=== PATIENT | male | born 1940 | race Caucasian/White ===

== ENCOUNTER 2023-10-28 14:50 | Emergency (ER) | payer MEDICARE ==
--- NOTE | 2023-10-28 15:31 | ED ---
General Adult HPI - General Chief complaint: Syncope Stated complaint: syncope Time Seen by Provider: 10/28/23 15:00 Source: patient, EMS, RN notes reviewed, old records reviewed Mode of arrival: EMS Limitations: no limitations - History of Present Illness Initial comments: Is an 83-year-old male who presents to the emergency department complaining of a syncopal episode. Patient states he was in the park and had a couple of hot dogs he sat down on a bench and then started feeling lightheaded. According to his son he went unresponsive just a few seconds he woke back up and continued to feel lightheaded and went back out. Son and a friend laid him down on the ground he then woke up almost immediately and he was without complaints. Patient still is without complaints. Patient denies any symptoms prior to the event. Patient denies chest pain palpitations difficulty breathing or shortness of breath. Patient has any recent fever chills or cough or patient denies any nausea vomiting or diarrhea. Patient states he is probably not drinking enough and this kind of weather. - Related Data Home Medications Medication Instructions Recorded Confirmed Aspirin EC [Ecotrin Low Dose] 81 mg PO DAILY 10/28/23 10/28/23 Cholecalciferol [Vitamin D3 (125 125 mcg PO DAILY 10/28/23 10/28/23 Mcg = 5000 Iu)] Flecainide [Tambocor] 50 mg PO BID 10/28/23 10/28/23 LORazepam [Ativan] 0.5 mg PO BID PRN 10/28/23 10/28/23 Latanoprost [Latanoprost 0.005%] 1 drop BOTH EYES HS 10/28/23 10/28/23 Lisinopril-Hctz 20-25 mg 1 tab PO DAILY 10/28/23 10/28/23 [Zestoretic 20-25] Metoprolol Succinate (ER) [Toprol 25 mg PO HS 10/28/23 10/28/23 Xl] Multivitamins, Thera [Multivitamin 1 tab PO DAILY 10/28/23 10/28/23 (formulary)] Thiamine [Vitamin B-1] 100 mg PO DAILY 10/28/23 10/28/23 Timolol 0.5% Ophth Soln [Timoptic 1 drop BOTH EYES DAILY 10/28/23 10/28/23 0.5% Ophth Soln] ondansetron HCL [Zofran] 8 mg PO Q12HR PRN 10/28/23 10/28/23 Allergies Allergy/AdvReac Type Severity Reaction Status Date / Time No Known Allergies Allergy Verified 10/28/23 16:11 Review of Systems ROS Statement: Those systems with pertinent positive or pertinent negative responses have been documented in the HPI. ROS Other: All systems not noted in ROS Statement are negative. Past Medical History Past Medical History: Atrial Fibrillation, Hypertension History of Any Multi-Drug Resistant Organisms: None Reported Past Surgical History: Back Surgery Additional Past Surgical History / Comment(s): TURP Smoking Status: Never smoker Past Alcohol Use History: None Reported Past Drug Use History: None Reported General Exam - General Exam Comments Initial Comments: GENERAL: Patient is well-developed and well-nourished. Patient is nontoxic and well- hydrated and is in no acute distress. ENT: Neck is soft and supple. No significant lymphadenopathy is noted. Oropharynx is clear. Moist mucous membranes. Neck has full range of motion without eliciting any pain. EYES: The sclera were anicteric and conjunctiva were pink and moist. Extraocular movements were intact and pupils were equal round and reactive to light. Eyelids were unremarkable. PULMONARY: Unlabored respirations. Good breath sounds bilaterally. No audible rales rhonchi or wheezing was noted. CARDIOVASCULAR: There is a regular rate and rhythm without any murmurs gallops or rubs. ABDOMEN: Soft and nontender with normal bowel sounds. SKIN: Skin is clear with no lesions or rashes and otherwise unremarkable. NEUROLOGIC: Patient is alert and oriented x3. Cranial nerves II through XII are grossly intact. Motor and sensory are also intact. Normal speech, volume and content. Symmetrical smile. MUSCULOSKELETAL: Normal extremities with adequate strength and full range of motion. LYMPHATICS: No significant lymphadenopathy is noted PSYCHIATRIC: Normal psychiatric evaluation. Limitations: no limitations Course Vital Signs 10/28/23 10/28/23 10/28/23 14:52 15:15 16:50 Temperature 97.8 F Pulse Rate 72 70 Pulse Rate [ 73 Sitting Pulse Oximetery] Pulse Rate [ 74 Standing Pulse Oximetery] Pulse Rate [ 71 Supine Pulse Oximetery] Respiratory 18 18 Rate Blood Pressure 143/89 128/81 Blood Pressure 134/80 [Left Arm Sitting] Blood Pressure 138/86 [Left Arm Standing] Blood Pressure 139/80 [Left Arm Supine] O2 Sat by Pulse 98 100 Oximetry 10/28/23 17:50 Temperature Pulse Rate 64 Pulse Rate [ Sitting Pulse Oximetery] Pulse Rate [ Standing Pulse Oximetery] Pulse Rate [ Supine Pulse Oximetery] Respiratory 18 Rate Blood Pressure 131/79 Blood Pressure [Left Arm Sitting] Blood Pressure [Left Arm Standing] Blood Pressure [Left Arm Supine] O2 Sat by Pulse 99 Oximetry Medical Decision Making - Medical Decision Making EKG is interpreted by myself. EKG shows a sinus rhythm at 69 bpm [place] interval is 221 QRS is 149 QT interval is 449 QTc is 463. Patient's EKG shows a right bundle branch block Was pt. sent in by a medical professional or institution (, [facility], [employer], urgent care, hospital, or assisted...) When possible be specific @ -No Did you speak to anyone other than the patient for history (EMS, parent, family, police, friend...)? What history was obtained from this source @ -No Did you review nursing and triage notes (agree or disagree)? Why? @ -I reviewed and agree with nursing and triage notes Were old charts reviewed (outside hosp., previous admission, EMS record, old EKG, old radiological studies, urgent care reports/EKG's, assisted records)? Report findings @ -No old charts were reviewed Differential Diagnosis? @ -M differential syncope EKG interpreted by me (3pts min.). @ -As above X-rays interpreted by me (1pt min.). @ -X-ray shows no acute abnormality CT interpreted by me (1pt min.). @ -None done U/S interpreted by me (1pt. min.). @ -None done What testing was considered but not performed or refused? (CT, X-rays, U/S, labs)? Why? @ -None What meds were considered but not given or refused? Why? @ -None Did you discuss the management of the patient with other professionals (professionals i.e. YAMIL Reeves, [employer], lab, RT, psych nurse, social psychologist, operations intelligence superintendent, teacher, airfield services officer, case filler)? Give summary @ -No Was smoking cessation discussed for >3mins.? @ -No Was critical care preformed (if so, how long)? @ -No Were there social determinants of health that impacted care today? How? (Homelessness, low income, unemployed, alcoholism, drug addiction, transportation, low edu. Level, literacy, decrease access to med. care, long term, rehab)? @ -No Was there de-escalation of care discussed even if they declined (Discuss DNR or withdrawal of care, Hospice)? DNR status @ -No What co-morbidities impacted this encounter? (DM, HTN, Smoking, COPD, CAD, Cancer, CVA, ARF, Chemo, Hep., AIDS, mental health diagnosis, sleep apnea, m orbid obesity)? @ -None Was patient admitted / discharged? Hospital course, mention meds given and r oute, prescriptions, significant lab abnormalities, going to OR and other pertinent info. @ -Patient was asymptomatic throughout his ED course per patient was able to eat and ambulate in the emergency department department. Patient was not orthostatic. Patient did look slightly dehydrated on some of his lab work so patient was given fluids in the emergency department Undiagnosed new problem with uncertain prognosis? @ -No Drug Therapy requiring intensive monitoring for toxicity (Heparin, Nitro, Insulin, Cardizem)? @ -No Were any procedures done? @ -No Diagnosis/symptom? @ -Default Acute, or Chronic, or Acute on Chronic? @ -P acute Uncomplicated (without systemic symptoms) or Complicated (systemic symptoms)? @ -Complicated Side effects of treatment? @ -No Exacerbation, Progression, or Severe Exacerbation? @ -No Poses a threat to life or bodily function? How? (Chest pain, [place], [place], pneumonia, PE, COPD, DKA, ARF, appy, cholecystitis, CVA, Diverticulitis, Homicidal, Suicidal, threat to staff... and all critical care pts) @ -No Diagnosis/symptom? @ -Patient Acute, or Chronic, or Acute on Chronic? @ -Acute Uncomplicated (without systemic symptoms) or Complicated (systemic symptoms)? @ -Complicated Side effects of treatment? @ -None Exacerbation, Progression, or Severe Exacerbation] @ -No Poses a threat to life or bodily function? @ -No - Lab Data Result diagrams: 10/28/23 18:11 Lab Results 10/28/23 10/28/23 Range/Units 18:11 18:11 WBC 6.6 (3.8-10.6) k/uL RBC 4.51 (4.30-5.90) m/uL Hgb 14.9 (13.0-17.5) gm/dL Hct 45.0 (39.0-53.0) % MCV 99.7 (80.0-100.0) fL MCH 32.9 (25.0-35.0) pg MCHC 33.0 (31.0-37.0) g/dL RDW 12.5 (11.5-15.5) % Plt Count 345 (150-450) k/uL MPV 7.8 Neutrophils % 72 % Lymphocytes % 20 % Monocytes % 6 % Eosinophils % 1 % Basophils % 0 % Neutrophils # 4.8 (1.3-7.7) k/uL Lymphocytes # 1.3 (1.0-4.8) k/uL Monocytes # 0.4 (0-1.0) k/uL Eosinophils # 0.1 (0-0.7) k/uL Basophils # 0.0 (0-0.2) k/uL Troponin I <0.012 (0.000-0.034) ng/mL Disposition Clinical Impression: Syncope, Dehydration Disposition: HOME SELF-CARE Condition: Good Instructions (If sedation given, give patient instructions): Dehydration (ED), Syncope (ED) Is patient prescribed a controlled substance at d/c from ED?: No Referrals: Nonstaff,Physician [Primary Care Provider] - 1-2 days Time of Disposition: 18:57
--- NOTE | 2023-10-28 16:32 | XR ---
EXAMINATION TYPE: XR chest 2V DATE OF EXAM: 10/28/2023 4:27 PM CLINICAL INDICATION:Male, 83 years old with history of Chest Pain; COMPARISON: None TECHNIQUE: XR chest 2V Frontal and lateral views of the chest. FINDINGS: Lungs/Pleura: 16 mm left upper lung nodule density. There is flattening of the diaphragm with increas ed lucency of the lungs. No evidence of pneumothorax, pleural effusion or focal consolidation. Pulmonary vascularity: Unremarkable. Heart/mediastinum: Cardiomediastinal silhouette is unremarkable. Musculoskeletal: No acute osseous pathology. IMPRESSION: 1. No acute cardiopulmonary disease process. 2. COPD changes. 3. Left left upper lung 16 mm nodule. Consider complete evaluation with outpatient CT chest.
[2023-10-28] MEDS: SODIUM CHLORIDE 0.9% 1,000 ML IV ONE (16:41)
[2023-10-28] MEDS: predniSONE 20 MG TAB PO STA (16:48)
[2023-10-28] MEDS: ASPIRIN 325 MG TAB PO STA (16:52)
[2023-10-28 18:15] LABS: Basophils % (A) 0 %; Eosinophils # (A) 0.1 k/uL (0-0.7); Eosinophils % (A) 1 %; HGB 14.9 gm/dL (13.0-17.5); Lymphocytes # (A) 1.3 k/uL (1.0-4.8); Lymphocytes % (A) 20 %; MCH 32.9 pg (25.0-35.0); MCV 99.7 fL (80.0-100.0); Mean Platelet Volume 7.8; Monocytes # (A) 0.4 k/uL (0-1.0); Monocytes % (A) 6 %; Neutrophils # (A) 4.8 k/uL (1.3-7.7); Neutrophils % (A) 72 %; Platelet Count 345 k/uL (150-450); RBC 4.51 m/uL (4.30-5.90); RDW 12.5 % (11.5-15.5); WBC 6.6 k/uL (3.8-10.6)
[2023-10-28 18:24] LABS: ALT 23 U/L (4-49); African American GFR (CKD) 82 (>60 ml/min/1.73 sqM); Albumin 3.9 g/dL (3.5-5.0); Anion Gap 4 mmol/L; Blood Urea Nitrogen 20 mg/dL (9-20); Calcium 9.2 mg/dL (8.4-10.2); Carbon Dioxide 30 mmol/L (22-30); Chloride 102 mmol/L (98-107); Glucose 133 mg/dL (74-99); Non-African American GFR(CKD) 71 (>60 ml/min/1.73 sqM); Sodium 136 mmol/L (137-145); Total Protein 6.3 g/dL (6.3-8.2)
[2023-10-28 19:07] LABS: AST 45 U/L (17-59); Alkaline Phosphatase 47 U/L (38-126); Magnesium 1.6 mg/dL (1.6-2.3); Potassium 4.4 mmol/L (3.5-5.1)
[2023-10-28 19:20] VITALS: BP 137/80; PULSE 67; RESP 16; TEMP 97.7
[2023-10-28] MEDS ORDERED: valACYclovir HCL 1,000 MG TABLET PO SCH (22:00)
[2023-10-29] MEDS ORDERED: ASPIRIN 325 MG TAB PO SCH (09:00)
[2023-10-29] MEDS ORDERED: predniSONE 20 MG TAB PO SCH (09:00)
== END 2023-10-28 19:20 | disposition home or self-care (01) ==
LOC: EC 14:50
DX: R55 Syncope and collapse (principal); E86.0 Dehydration
CPT/HCPCS: 36415; 93005; 80053; 83735; 84484; 85025; 71046; 99284; 96360; J7512